=== PATIENT | male | born 1965 | race Caucasian/White ===

== ENCOUNTER → 2016-06-11 | Outpatient (CLI) | payer OTHER, MEDICARE ==
--- NOTE | 2016-06-11 08:44 | US ---
EXAMINATION TYPE: US duplex aorta DATE OF EXAM: 06/11/2016 7:25 AM COMPARISON: NONE CLINICAL HISTORY: 51-year-old male I70.0 Calcified Aorta. TECHNIQUE: Multiple sonographic images of the abdominal aorta were obtained. FINDINGS: EXAM MEASUREMENTS: Abdominal Aorta: Proximal: 2.5cm Mid: 3.1 cm. Distal: 3.2 cm. Right common iliac artery: 3.8 x 3.1 cm. Left common iliac artery: 2.7 x 3.0 cm. DENTAL LABORATORY WORKER NOTES: Aorta measures large at mid and distal. Also at right iliac. Technically difficul t study due to morbid obesity. Portions also obscured by bowel gas. IMPRESSION: 1. Aneurysmal mid and distal abdominal aorta measuring up to 3.2 cm. The proximal abdominal aorta is also ectatic at 2.5 cm. 2. The cascade operator measures large aneurysms of the right greater than left common iliac arteries at 3 .8 and 3.0 cm, respectively. Further cross-sectional evaluation recommended to confirm.
== END ==
LOC: RADUSWWP 07:04
PROVIDERS: ATTEND Family Medicine
DX: I71.4 Abdominal aortic aneurysm, without rupture (principal); I77.811 Abdominal aortic ectasia
CPT/HCPCS: 93979